=== PATIENT | female | born 1995 | race Caucasian/White ===

== ENCOUNTER 2016-09-21 08:01 | Inpatient (IN) | payer OTHER ==
[~2016-09-21] VITALS: Ht 177.8 cm; Wt 72.6 kg
--- NOTE | 2016-09-21 16:00 | NUR ---
INTAKE ASS[facility]MENT [facility] AOx4. Pt vitals are stable. Pt reports no known allergies. No hx of seizures. Pt brought an inhaler Proventic with her to the unit. Explained unit protocol and policies and pt verbalized understanding. Will admit patient when she gets to unit.
[2016-09-21 16:18] VITALS: BP 114/64
[2016-09-21] MEDS ORDERED: HYDROXYZINE PAMOATE 25 MG CAPSULE PO PRN (16:45)
[2016-09-21] MEDS ORDERED: TRAZODONE 50 MG TABLET PO PRN (16:45)
[2016-09-21 16:51] LABS: *URINE HCG, QUAL NEGATIVE (NEGATIVE)
[2016-09-21 17:05] LABS: *AMPHETAMINE, URINE NEGATIVE (NEGATIVE); *BARBITURATE, URINE NEGATIVE (NEGATIVE); *CANNABINOID, URINE POSITIVE (NEGATIVE); *COCCAINE, URINE NEGATIVE (NEGATIVE); *OPIATE, URINE POSITIVE (NEGATIVE); *PHENCYCLIDINE SCREEN,URINE NEGATIVE (NEGATIVE)
--- NOTE | 2016-09-21 17:20 | NUR ---
ADMISSION NOTE VS: BP 114/64 HR: 90 TEMP: 98.0 RR: 16 O2: 98% WEIGHT 160 LBS HEIGHT 5'10 ALLERGIES: GAYE Pt is a 21 year old female admitted to [facility] on 09/21/16 at 1615. Pt is under the care of Dr. Plummer for heroin, meth, and marijuana dependence. Pt denies suicidal and homicidal ideations at this time. Pt denies being hospitalized in the last 30 days. pt denies chest pain or SOB. Pt reports using an inhaler for asthma symptoms. Upon assessment, patient has abscesses to bilat arms and track edwards up right arm. Pictures taken and put in chart. COWS 6 CIWA 9 upon admission. NKA. AOX4 and able to answer necessary questions for admission process. Pt is full code regular diet. Vitals are stable. Pt denies seizure history. Pt denies having a PCP. Breathing is even and unlabored. Pt ambulates with steady gait. Pt states bowel habits are normal. Pt states she is currently homeless. Pt reports treatment hx last year in [place] and [facility]. Hx borderline personality disorder, anxiety and depression per patient. Pt refuses PNA vaccine. Pt smokes a pack of cigarettes per day. Dr Plummer has been notified and placed client under observation. All needs have been met. Pt has been oriented to room staff and unit. All safety measures in place per hospital policy. Bed locked and in lowest position side rails up x2. Call curry within reach. Will continue to monitor. Substance Abuse: Heroin: 1 gram daily for 6 months, last used 1 gram on 09/21/16 at 0500 Meth: 0.25 gram occasionally for 6 months, last used 0.25 gram on 09/12/16 Marijuana: 1.2 gram daily since age 16. last used 1/2 gram on 09/19/16
[2016-09-21] MEDS ORDERED: MAGNESIUM HYDROXIDE 30 ML LIQUID UDC PO PRN (17:30)
[2016-09-21] MEDS ORDERED: LOPERAMIDE HCL 2 MG CAPSULE PO PRN ×2 (17:30)
[2016-09-21] MEDS ORDERED: IBUPROFEN 600 MG TABLET PO PRN (17:30)
[2016-09-21] MEDS ORDERED: MAG HYDROX/AL HYDROX/SIMETH 30 ML LIQUID UDC PO PRN (17:30)
[2016-09-21] MEDS ORDERED: ONDANSETRON ODT 4 MG TAB.RAPDIS SL PRN (17:30)
[2016-09-21] MEDS ORDERED: ACETAMINOPHEN 325 MG TABLET PO PRN (17:30)
[2016-09-21] MEDS ORDERED: DICYCLOMINE HCL 20 MG TABLET PO PRN (17:30)
[2016-09-21] MEDS ORDERED: MIRALAX 17 GM POWD.PACK PO PRN (17:30)
[2016-09-21] MEDS ORDERED: BUPRENORPHINE HCL 2 MG TAB.SUBL SL PRN (17:30)
[2016-09-21] MEDS ORDERED: ONDANSETRON 4 MG/2 ML VIAL IM PRN (17:30)
[2016-09-21 18:26] LABS: BASOPHILS % (AUTO) 0.4 % (0.0-2.0); EOSINOPHILS # (AUTO) 0.9 K/uL (0.0-0.7); EOSINOPHILS % (AUTO) 14.1 % (0.0-7.0); HEMATOCRIT 37.6 % (37-47); HEMOGLOBIN 12.5 G/DL (12.0-16.0); LYMPHOCYTES # (AUTO) 2.8 K/uL (20.0-40.0); LYMPHOCYTES % (AUTO) 40.8 % (20.5-51.5); MEAN CORPUSCULAR HEMOGLOBIN 28.4 UUG (27.0-31.0); MEAN CORPUSCULAR HGB CONC 33 g/dL (32.0-37.0); MEAN CORPUSCULAR VOLUME 85.4 FL (81.0-99.0); MONOCYTES # (AUTO) 0.6 K/uL (2.0-10.0); MONOCYTES % (AUTO) 8.8 % (0.0-11.0); NEUTROPHILS # (AUTO) 2.4 K/uL (1.8-8.9); NEUTROPHILS % (AUTO) 35.9 % (38.5-71.5); PLATELET COUNT (AUTO) 246 K/UL (150-450); RED CELL DISTRIBUTION WIDTH 13.5 % (11.5-14.5); WHITE BLOOD COUNT (AUTO) 6.7 K/UL (4.0-11.2)
[2016-09-21 18:30] LABS: ETHANOL < 3 MG/DL (0-0)
[2016-09-21 18:36] LABS: ALANINE AMINOTRANSFERASE 104 U/L (14-59); ALBUMIN 3.2 g/dL (3.4-5.0); ALKALINE PHOSPHATASE 108 U/L (50-136); ASPARTATE AMINOTRANSFERASE 41 U/L (15-37); BILIRUBIN,TOTAL 0.2 mg/dL (0.2-1.0); CALCIUM 8.6 mg/dL (8.5-10.1); CARBON DIOXIDE 30 mmol/L (21-32); CHLORIDE 104 mmol/L (98-107); CREATININE 0.8 mg/dL (0.6-1.3); GFR 91 mL/min (>60); GLUCOSE 79 mg/dL (74-106); MAGNESIUM 1.9 mg/dL (1.8-2.4); POTASSIUM 3.8 mmol/L (3.5-5.1); SODIUM SERUM 141 mmol/L (136-145); TOTAL PROTEIN, SERUM 7.2 g/dL (6.4-8.2); UREA NITROGEN, BLOOD 11 mg/dL (7-18)
[2016-09-21 18:46] LABS: THYROID STIMULATING HORMONE 0.569 mIU/mL (0.358-3.740)
[2016-09-21 18:55] LABS: HIV-1 p24 ANTIGEN NON REACTIVE (NONREACTIVE); HIV-1/2 ANTIBODY NON REACTIVE (NONREACTIVE)
--- NOTE | 2016-09-21 18:58 | NUR ---
END OF SHIFT Admitted patient this afternoon. Regular diet full code. Hx anxiety, depression and borderline personality disorder. Pt admitted for heroin,meth, marijuana. COWS 6. Patient is to start 4 day subutex taper tomorrow. Patient currently sleeping in bed rr even and unlabored at 16. Will endorse to night nurse.
[2016-09-21 20:00] VITALS: BP 116/69
--- NOTE | 2016-09-21 20:00 | NUR ---
1999 Patient received sleeping. Attempts for patient to be awakened for vital signs and nurse assessment met, with patient striking out at nurse with both her legs and her arm, while patient frowned, kept her eyes closed and shouted out something unintelligible to nurse. Patient refused to answer any nurse assess questions and mood/affect is combative, hostile and overall uncooperative. Patient refuses any eye contact. V/S are: 97.6-76-14 116/69 O2 Sat 97%, COWS 6, though COWS assess very difficult to assess. Patient's color is pink and her skin is warm, slightly moist and intact. Patient noted to have bilateral lower arm wrap dressings in place on arms, however she refused nurse to unwrap dressings to observe arms underneath dressings Bed is locked and in lowest position, bed rails are up X 2 and call light within patient' easy reach.
[2016-09-22 02:10] VITALS: BP 107/69
[2016-09-22] MEDS: CLONIDINE HCL 0.1 MG TABLET PO PRN (02:13)
[2016-09-22] MEDS: METHOCARBAMOL 750 MG TABLET PO PRN ×2 (02:13→14:22)
--- NOTE | 2016-09-22 02:16 | NUR ---
PRN Subutex 4mg: Patient noted with gross tremor, severe myalgia, severe myoclonus, diaphoresis, agitation, pupils 6mm. COWS is 25. Administered PRN Subutex 4mg, PRN Clonidine, and PRN Robaxin as ordered. Will continue to monitor.
--- NOTE | 2016-09-22 02:30 | NUR ---
Dr. Plummer notified about patients condition. COWS still 25. New order Subutex 4 mg PO once needs to be given in 15 minutes if COWS would be still high. Notify MD about patients conditions in 1 hr. Will continue to monitor.
--- NOTE | 2016-09-22 02:46 | NUR ---
PRN Subutex Reassessment: Patient noted with significant decrease in gross tremor, restlessness, diaphoresis. Patient reports decrease in pain, from 10/10 to 3/10, and decrease in anxiety. COWS decreased from 25 to 5 after PRN Subutex 4mg administration. Will continue to monitor.
--- NOTE | 2016-09-22 03:16 | NUR ---
PRN Clonidine and PRN Robaxin Reassessment: Patient noted to be again displaying agitation, and reports mild muscle cramps. PRN Robaxin mildly effective. PRN Clonidine not effective. Will endorse to primary nurse for follow-up.
[2016-09-22] MEDS ORDERED: BUPRENORPHINE HCL 2 MG TAB.SUBL SL ONE ×3 (03:29→03:30)
[2016-09-22 04:00] VITALS: BP 110/67
--- NOTE | 2016-09-22 04:00 | NUR ---
V/S 97.8 77-12 114/62, O2 Sat 97%, COWS 15
[2016-09-22] MEDS ORDERED: LORAZEPAM 1 MG TABLET PO ONE (06:15)
--- NOTE | 2016-09-22 06:20 | NUR ---
Ativan 1 mg p.o. given per order, for COWS 15. Patient thrashing wildly in bed and states, " I can't do this! 1 to [address] Plummer called by charge nurse, Kaylah, who then also called Crisis team and spoke to 'Deep'.
[2016-09-22] MEDS ORDERED: LORAZEPAM 1 MG TABLET ONE (06:23)
--- NOTE | 2016-09-22 06:30 | NUR ---
0630 Patient slept very restlessly for a total of 6 plus hours, however she screamed in her sleep at times, yelled unintelligible things at staff frequently and she remained uncooperative and combative whenever staff tried to interact with her. Few sips water intake and no output noted this shift. Patient put on 1 to 1 staff for her safety at 0400, as she began to cry loudly, thrash about wildly in bed and make threats to staff about harming herself.
[2016-09-22 08:00] VITALS: BP 124/61
--- NOTE | 2016-09-22 08:00 | NUR ---
START OF SHIFT Pt 21 y/o female admitted for substance dependence. Pt received in room with eyes closed on bed. Sitter 1:1 for safety. Pt alert and oriented to name. Not able to assess further orientation, as pt refuses to answer questions. Pt just responds with grunts, and does not really acknowledge. Pt observed turning left to right and back on bed during attempted assessment. Pt also noted with tearing episode. Pt also with episodes of kicking in any general direction. Pt resistive to care. It was reported that pt slept for 4 hours last night. AST=41 GPM=[address] Plummer made aware. Bed on lowest position with side rails x2 up for safety. Call light within reach.
--- NOTE | 2016-09-22 08:13 | NUR ---
5150 Deep from crisis team was here to evaluate pt. During assessment, pt was resistive to respond, mostly making grunting noises as a response. Pt did eventually respond with short answers, such as yes/no only. Deep stated that she does not meet criteria for 5150, because pt denies threat to self and others.
[2016-09-22] MEDS ORDERED: TUBERCULIN,PURIF.PROT.DERIV. 5 TU/0.1 ML TEST ID ONE (09:00)
[2016-09-22] MEDS: DOCUSATE SODIUM 250 MG CAPSULE PO SCH (09:00)
[2016-09-22] MEDS ORDERED: 4 DAY TAPER BUPRENORPHINE -SERENITY PROTOCOL SL PRN (09:00)
[2016-09-22] MEDS ORDERED: BUPRENORPHINE HCL 2 MG TAB.SUBL SL SCH (09:00)
[2016-09-22] MEDS: MULTIVITAMINS,THERAPEUTIC TABLET PO SCH (09:00)
--- NOTE | 2016-09-22 09:00 | NUR ---
PPD Pt refused the PPD skin test this morning. Pt very resistive stating, " No! why do I have do to do it! I don't want it!". Dr. Plummer aware with new order for cxr r/o tb, noted and carried out.
[2016-09-22] MEDS: CITALOPRAM 20 MG TABLET PO SCH (10:01)
[2016-09-22] MEDS: BUPRENORPHINE HCL 2 MG TAB.SUBL SL SCH ×3 (10:01→21:15)
--- NOTE | 2016-09-22 10:53 | NUR ---
NSG ENTRY Pt was seen by Dr. Juarez with suggestion to notify psychiatrist. Pt observed restless, unpredictable, and agitated. Dr. Betancourt notified and stated he will be here shortly to evaluate the pt. Pt remains on 1:1 sitter for safety.
[2016-09-22] MEDS ORDERED: ALBU8.5H2 INH (11:29)
[2016-09-22 12:00] VITALS: BP 111/60
[2016-09-22] MEDS: QUETIAPINE FUMARATE 25 MG TABLET PO PRN ×2 (14:22→23:28)
--- NOTE | 2016-09-22 14:22 | NUR ---
PRN Pt with c/o generalized body aches 11/27. robaxin po prn per MD order given and tolerated well.
--- NOTE | 2016-09-22 14:22 | NUR ---
PRN Pt agitated. Pt states she is very irritable. Pt stated, "I don't know. I'm just agitated." Seroquel po prn per MD order given and tolerated well.
--- NOTE | 2016-09-22 15:22 | NUR ---
VLADISLAV PANDA Pt observed in room on bed with eyes closed resting, but easily arousable to name. Sitter 1:1 in arm's length. No distress noted at this time.
[2016-09-22 16:00] VITALS: BP 95/41
[2016-09-22] MEDS ORDERED: ALBUTEROL SULFATE 2.5 MG/3 ML NEBU NEB PRN (16:45)
--- NOTE | 2016-09-22 17:30 | NUR ---
CXR Pt refused cxr to be done at this time. x-ray tech stated we will try again later.
--- NOTE | 2016-09-22 18:55 | NUR ---
END OF SHIFT Pt 21 y/o female admitted for substance use. Pt alert and oriented to name and place. Pt selective with responses during converstions today. Perrla. Skin warm and moist to touch. Respirations even and unlabored. Pt resistive and uncooperative this morning. Labile. At times, pt did not want to respond back to anyone talking to her and forcefully shut her eyes ( no distress, respirations even and unlabored). Pt with sitter 1:1 for safety. Pt observed mostly in room throughout the day. Pt did not attend group activity. Bed on lowest position with side rails x2 up for safety. Call light within reach. No distress noted at this time.
--- NOTE | 2016-09-22 19:30 | NUR ---
START OF SHIFT NOTE : Pt 21 y/o female admitted for substance dependence. Pt received in room with eyes closed on bed. Sitter 1:1 for safety. Pt alert and oriented to name. Not able to assess further orientation, pt refuses to answer questions. Pt observed turning left to right and back on bed during attempted assessment. Pt resistive to care. Safety precautions are in place. Bed locked in lowest position. Both side rails up. Call light within pts reach. Will continue to monitor patient and offer help.
[2016-09-22 20:00] VITALS: BP 107/54
--- NOTE | 2016-09-22 22:00 | NUR ---
PRN SEROQUEL Pt agitated. Pt states she is very irritable. Pt stated, "I don't know. I'm just agitated." Seroquel po prn per MD order given and tolerated well.
--- NOTE | 2016-09-22 22:55 | NUR ---
REASSESSMENT SEROQUEL Pt observed in room on bed with eyes closed resting, but easily arousable to name. Sitter 1:1 in arm's length. No distress noted at this time. Safety measures in place : bed on lowest position with side rails x2 up for safety, call light within reach. Will continue to monitor closely and offer help.
--- NOTE | 2016-09-23 07:30 | NUR ---
END OF SHIFT NOTE : Pt 21 y/o female admitted for substance use. Pt alert and oriented to name and place. Pt selective with responses during converstions today. Perrla. Skin warm and dry. Respirations even and unlabored. Pt resistive and uncooperative this morning. Labile. At times, pt did not want to respond back to anyone talking to her and forcefully shut her eyes ( no distress, respirations even and unlabored). Pt with sitter 1:1 for safety. Pt observed mostly in room throughout the day. Pt did not attend group activity. PRN SEROQUEL was given during my shift. V/S remain WNL. RR=16, even and unlabored, lungs clear upon auscultation, abdomen soft and non- distended. Pt denies nausea, vomiting and diarrhea. LAST COWS= 6 at 0400 , VMQUCD=526 ml, voided x 2, slept 9 hours[address] measures in [address] : bed on lowest position with side rails x2 up for safety, call light within reach. Will continue to monitor closely and offer help.
[2016-09-23 08:00] VITALS: BP 99/65
[2016-09-23] MEDS: MULTIVITAMINS,THERAPEUTIC TABLET PO SCH (08:26)
[2016-09-23] MEDS: CITALOPRAM 20 MG TABLET PO SCH (08:26)
[2016-09-23] MEDS: GABAPENTIN 300 MG CAPSULE PO SCH ×3 (08:27→20:47)
[2016-09-23] MEDS: DOCUSATE SODIUM 250 MG CAPSULE PO SCH (08:27)
--- NOTE | 2016-09-23 08:30 | NUR ---
START OF SHIFT Received pt this am tossing and turning in bed. Pt making moaning and grunting noises and very restless. Pt is on 1:1 for pt safety. Pt slept 9 hours. PRN Seroquel was given per night nurse with effectiveness. COWS 10 at 0800. Will medicate patient as ordered and as necessary per patient's w/d s/s. Pt laying in bed with bed locked and in lowest position and call curry within reach. Sitter at bedisde. Will provide safe and supportive environment. Will continue to monitor
[2016-09-23] MEDS ORDERED: BUPRENORPHINE HCL 2 MG TAB.SUBL SL SCH ×2 (09:00)
[2016-09-23 10:10] LABS: HCV AB >11.0 s/co ratio (0.0-0.9); HEPATITIS B CORE AB, IgM Negative (Negative); HEPATITIS B SURFACE AG Negative (Negative)
--- NOTE | 2016-09-23 10:57 | NUR ---
ENDORSEMENT NOTE pt endorsed to day shift SONIA mcclure. Pt on 1:1 with sitter at bedside. VSS. report given to
--- NOTE | 2016-09-23 10:58 | NUR ---
ENDORSEMENT Received pt endorsement received Pt on 1:1 with sitter at bedside. VS WNL will continue to monitor and provide care
[2016-09-23 12:00] VITALS: BP 122/72
[2016-09-23] MEDS: BUPRENORPHINE HCL 2 MG TAB.SUBL SL SCH ×2 (15:31→20:46)
[2016-09-23 16:00] VITALS: BP 125/71
--- NOTE | 2016-09-23 19:30 | NUR ---
START OF SHIFT NOTE : Pt 21 y/o female admitted for Opiate dependence. Pt full code regular diet continues on fall precautions denies any food or drug allergies. Pt alert and oriented to name, place. Pt continues her 4 day Subutex taper. Treatment plan tolerated well by the patient Current COWS=2, VS WNL. Patient encouraged adequate PO fluid intake as tolerated. Detox medication effective at reducing withdrawal symptoms. Patient encouraged to attend group therapies/sessions to learn new coping skills to recent relapse, noted attending and participating in groups and activities, patient denies SI/HI. Safety measures in place. Call light kept within reach. Patient endorsed to women's activities adviser nurse, all pertinent information discussed with women's activities adviser nurse.
--- NOTE | 2016-09-23 19:38 | NUR ---
End Of Shift Pt 21 y/o female admitted for Opiate dependence. Pt full code regular diet continues on fall precautions denies any food or drug allergies. Pt's Sitter 1:1 for safety has been discontinued per MD order. Pt alert and oriented to name. Pt continues her 4 day Subutex taper.Treatment plan tolerated well by the patient. Upon assessment patient presented with dilated pupils, stomach cramps, mild anxiety, with her last COWS score being a 4 @1600. Pt did not receive any PRN medications during day shift. Patient encouraged adequate PO fluid intake as tolerated. Detox medication effective at reducing withdrawal symptoms. Patient encouraged to attend group therapies/sessions to learn new coping skills to recent relapse, noted attending and participating in groups and activities, patient denies SI/HI. Pt ate all of her meals her total fluid intake was 1955 with 3 void and no bowel movement, Safety measures in place. Call light kept within reach. Patient endorsed to mold shifter nurse, all pertinent information discussed with mold shifter nurse.
[2016-09-23 20:00] VITALS: BP 115/68
--- NOTE | 2016-09-23 23:00 | NUR ---
PRN CLONIDINE , TRAZODONE , BENADRYL Pt. complains of sleeplessness, flashes, increased level of anxiety. PRN CLONIDINE , TRAZODONE , BENADRYL Given as ordered. Safety measures in place : bed on lowest position with side rails x2 up for safety, call light within reach. Will continue to monitor closely and offer help.
[2016-09-23] MEDS: diphenhydrAMINE 50 MG CAPSULE PO PRN (23:30)
[2016-09-23] MEDS: CLONIDINE HCL 0.1 MG TABLET PO PRN (23:31)
--- NOTE | 2016-09-23 23:55 | NUR ---
REASSESSMENT CLONIDINE , TRAZODONE , BENADRYL Pt. feels better , is ready to sleep, states decreased level of anxiety. Safety measures in place : bed on lowest position with side rails x2 up for safety, call light within reach. Will continue to monitor closely and offer help.
--- NOTE | 2016-09-24 07:26 | NUR ---
END OF SHIFT NOTE : Pt 21 y/o female admitted for Opiate dependence. Pt full code regular diet continues on fall precautions denies any food or drug allergies. Pt alert and oriented to name, place. Pt continues her 4 day Subutex taper. Treatment plan tolerated well by the patient Current COWS=2, VS WNL. Patient encouraged adequate PO fluid intake as tolerated. Detox medication effective at reducing withdrawal symptoms. Pt remains compliant with the treatment plan. No PRNs were given during my shift. V/S remain WNL. RR=16, even and unlabored, lungs clear upon auscultation, abdomen soft and non- distended. IV access removed, pressure dressing placed properly. Pt denies nausea, vomiting and diarrhea. LAST COWS=2 at 0400 , [id number] ml, voided x 2, slept 6 hours.
[2016-09-24 08:00] VITALS: BP 104/60
--- NOTE | 2016-09-24 08:00 | NUR ---
START OF SHIFT NOTE Receive report from night nurse, 21 year old female admitted for Opiate dependence. NKA, Full code regular diet on fall precautions. Pt alert and oriented to name, place. Pt cont with 4 day Subutex taper. Per endorsement pt received PRN medications effective. Last COWS-2, Slept for 6 hours. Received pt alert awake oriented x 4 in stable condition. Breathing normal no SOB noted. Respiration even and unlabored, lungs clear upon auscultation, abdomen soft and non- distended. Pt denies nausea, vomiting and diarrhea. Patient denies SI/HI. Safety measures in place. Call light kept within reach.
[2016-09-24] MEDS ORDERED: BUPRENORPHINE HCL 2 MG TAB.SUBL SL SCH ×2 (09:00→15:00)
[2016-09-24] MEDS: GABAPENTIN 300 MG CAPSULE PO SCH ×3 (09:02→20:51)
[2016-09-24] MEDS: DOCUSATE SODIUM 250 MG CAPSULE PO SCH (09:02)
[2016-09-24] MEDS: MULTIVITAMINS,THERAPEUTIC TABLET PO SCH (09:02)
[2016-09-24] MEDS: CITALOPRAM 20 MG TABLET PO SCH (09:02)
[2016-09-24] MEDS: BUPRENORPHINE HCL 2 MG TAB.SUBL SL SCH ×3 (09:03→20:52)
[2016-09-24 12:00] VITALS: BP 111/66
[2016-09-24 16:00] VITALS: BP 122/73
--- NOTE | 2016-09-24 19:21 | NUR ---
END OF SHIFT NOTE Gave report to night nurse,21 year old female admitted for Opiate dependence. NKA, Full code regular diet on fall precautions. Pt cont with 4 day Subutex taper. Pt did not receive any PRN medication during shift. Last COWS-2. Pt attended groups and activities. Pt remained compliant with treatment and medications. Vital signs remained stable. Safety measures in place, call light within reach. Pt endorsed pt to night nurse in stable condition.
[2016-09-24 20:00] VITALS: BP 118/68
--- NOTE | 2016-09-24 20:11 | NUR ---
START OF SHIFT NOTE Pt is a 21 y/o female admitted for Heroin , Meth, and Marijuana dependence and use. Pt has NKA but reported a PMH of anxiety, depression, and borderline personality disorder. Per day shift nurse pt was placed on a 4 day Subutex taper (day 3) and is tolerating medication well, with no s/e or a/r reported. Pt didn't receive any PRNS during the day shift. Last COW: 2 (1600). At this time pt has just returned to her room from the recreational room. Pt stated " I'm doing okay today." Pt denies any pain/discomfort at this time. Pt was encouraged to notify staff of any changes in condition or of any concerns. Pt verbalized an understanding. All safety measures in place; side rails up x 2, bed locked and in low position, and call light within reach. Will continue to monitor.
[2016-09-24] MEDS: diphenhydrAMINE 50 MG CAPSULE PO PRN (23:23)
--- NOTE | 2016-09-24 23:23 | NUR ---
BENADRYL PRN ADMINISTRATION Pt stated " Can I have my sleeper now?" Benadryl 50 mg PO PRN was given. Pt was encouraged to notify staff of any changes in condition or of any concerns. Pt verbalized an understanding. All safety measures in place. Will monitor for effectiveness.
[2016-09-25] VITALS: BP 120/66
--- NOTE | 2016-09-25 00:23 | NUR ---
BENADRYL PRN REASSESSMENT Pt is asleep in bed at the moment. Pt is easily aroused. Pt stated " I just fell asleep, but I think I want to go down for a cigarette." Pt was encouraged to stay in bed and rest to prevent restlessness. Pt verbalized an understanding. All safety measures in place. PRN effective. Will continue to monitor.
[2016-09-25] MEDS: HYDROXYZINE PAMOATE 25 MG CAPSULE PO PRN ×3 (03:28→20:06)
--- NOTE | 2016-09-25 03:28 | NUR ---
VISTARIL PRN ADMINISTRATION Pt stated " I woke up feeling a little restless and anxious. Can I have my Vistaril?" Vistaril 50 mg PO PRN was given. Pt was encouraged to notify staff of any changes in condition or of any concerns. Pt verbalized an understanding. All safety measures in place. Will monitor for effectiveness.
[2016-09-25 04:00] VITALS: BP 115/68
--- NOTE | 2016-09-25 04:38 | NUR ---
VISTARIL PRN REASSESSMENT Pt stated "I feel more rested now." PRN effective. Will continue to monitor.
--- NOTE | 2016-09-25 07:35 | NUR ---
END OF SHIFT NOTE Pt is a 21 y/o female admitted for Heroin , Meth, and Marijuana dependence. Pt has NKA but reported a PMH of anxiety, depression, and borderline personality disorder. Pt was placed on a 4 day Subutex taper (day 4) and is tolerating medication well, with no s/e or a/r reported. Pt received Benadryl 50 mg PO PRN and Vistaril 50 mg PO PRN was given during the shift. Pt slept for a total of 3 hours. Last COW: 2 (0400). All safety measures in place; side rails up x 2, bed locked and in low position, and call light within reach. Endorsed to the oncoming nurse.
--- NOTE | 2016-09-25 07:40 | NUR ---
START OF SHIFT NOTE Receive report from night nurse, 21 year old female admitted for Opiate dependence. NKA/ Full code regular diet continues on fall precautions. Pt cont with 4 days Subutex taper tolerating well. per endorsement Pt received PRN medications Last COWS-2, slept for 3 hours. Currently pt is sleeping responsive to verbal and tactile stimuli, Breathing normal no SOB noted. Respiration even and unlabored, lungs clear upon auscultation, Safety measures in place. Call light kept within reach. Will continue to monitor.
[2016-09-25 08:00] VITALS: BP 107/62
--- NOTE | 2016-09-25 08:46 | NUR ---
REFUSED MED Pt refused her scheduled morning medications , offered x3 risk and benefits explained. Pt still refused. MD aware. Last COWS was noted 1.
[2016-09-25] MEDS: MULTIVITAMINS,THERAPEUTIC TABLET PO SCH (09:00)
[2016-09-25] MEDS: DOCUSATE SODIUM 250 MG CAPSULE PO SCH (09:00)
[2016-09-25] MEDS ORDERED: BUPRENORPHINE HCL 2 MG TAB.SUBL SL SCH ×2 (09:00)
[2016-09-25] MEDS: GABAPENTIN 300 MG CAPSULE PO SCH ×3 (09:00→20:06)
[2016-09-25] MEDS: CITALOPRAM 20 MG TABLET PO SCH (09:00)
[2016-09-25 12:00] VITALS: BP 144/65
[2016-09-25] MEDS ORDERED: QUETIAPINE FUMARATE 25 MG TABLET PO PRN (12:00)
[2016-09-25 16:00] VITALS: BP 116/70
[2016-09-25 18:43] LABS: *AMPHETAMINE, URINE NEGATIVE (NEGATIVE); *BARBITURATE, URINE NEGATIVE (NEGATIVE); *CANNABINOID, URINE NEGATIVE (NEGATIVE); *COCCAINE, URINE NEGATIVE (NEGATIVE); *OPIATE, URINE POSITIVE (NEGATIVE); *PHENCYCLIDINE SCREEN,URINE NEGATIVE (NEGATIVE)
--- NOTE | 2016-09-25 19:03 | NUR ---
END OF SHIFT NOTE Gave report to night nurse, 21 year old female admitted for Opiate dependence. NKA, Full code regular diet on fall precautions. Pt completed her 4 day Subutex taper tolerated well. Pt did not receive any PRN medication during shift. Pt attended groups and activities. Pt refused all her morning scheduled medications offered x3 risk and benefits explained still refused. Vital signs remained stable. Pt scheduled for discharge in AM, urine drug screen completed and placed in the chart. Last COWS-1. Safety measures in place, call light within reach. Pt endorsed pt to night nurse in stable condition.
[2016-09-25 20:00] VITALS: BP 132/72
[2016-09-25] MEDS ORDERED: HYDR-3895 PO (20:05)
[2016-09-25] MEDS ORDERED: CITA20TA19 PO (20:05)
[2016-09-25] MEDS ORDERED: METH-33 PO (20:05)
[2016-09-25] MEDS ORDERED: CLON0.1T14 PO (20:05)
[2016-09-25] MEDS ORDERED: Gabapentin PO (20:05)
[2016-09-25] MEDS ORDERED: QUET25TA PO (20:05)
--- NOTE | 2016-09-25 20:06 | NUR ---
START OF SHIFT NOTE Pt is a 21 y/o female admitted for Heroin , Meth, and Marijuana dependence and use. Pt has NKA but reported a PMH of anxiety, depression, and borderline personality disorder. Per day shift note pt completed taper and is scheduled for discharge tomorrow. Pt didn't receive any PRNS during the day shift. Last COW: 1 (1600). At this time pt is coming from a meeting in the recreational room. Pt stated "I'm doing fine today. I leave tomorrow." Pt denies any pain/discomfort at this time. Pt was encouraged to notify staff of any changes in condition or of any concerns. Pt verbalized an understanding. All safety measures in place; side rails up x 2, bed locked and in low position, and call light within reach. Will continue to monitor.
--- NOTE | 2016-09-25 20:06 | NUR ---
VISTARIL PRN ADMINISTRATION Pt stated " I'm anxious. Can I have Vistaril?" Vistaril 50 mg PO PRN was given. Pt was encouraged to notify staff of any changes in condition or of any concerns. Pt verbalized an understanding. Will monitor for effectiveness.
--- NOTE | 2016-09-25 21:06 | NUR ---
VISTARIL PRN REASSESSMENT Pt stated " I'm feel better." PRN effective. Will continue to monitor.
[2016-09-25] MEDS: QUETIAPINE FUMARATE 25 MG TABLET PO PRN (23:47)
--- NOTE | 2016-09-25 23:47 | NUR ---
SEROQUEL PRN ADMINISTRATION Pt stated " I'm agitated. Can I have my Seroquel?" Seroquel 50 mg PO PRN was given. Pt was encouraged to notify staff of any changes in condition or of any concerns. Pt verbalized an understanding. Will monitor for effectiveness.
--- NOTE | 2016-09-26 | NUR ---
COW AND VITALS REFUSED Pt refused to be assessed and have vitals taken at this time. Pt was encouraged x 3 with risks and benefits explained, but the pt still refused. All safety measures in place. Will continue to monitor. Addendum: 09/26/16 at 0211 by ITALO CANO LVN Amended: Links added.
--- NOTE | 2016-09-26 00:47 | NUR ---
SEROQUEL PRN REASSESSMENT Pt stated " I'm okay." PRN effective. Pt was encouraged to notify staff of any changes in condition or of any concerns. Pt verbalized an understanding. Will continue to monitor.
--- NOTE | 2016-09-26 04:00 | NUR ---
COW AND VITALS REFUSED Pt refused to be assessed and have vitals taken at this time. Pt was encouraged x 3 with risks and benefits explained, but the pt still declined. Will continue to monitor. Addendum: 09/26/16 at 0426 by ITALO CANO LVN Amended: Links added.
--- NOTE | 2016-09-26 07:03 | NUR ---
END OF SHIFT NOTE Pt is a 21 y/o female admitted for Heroin , Meth, and Marijuana dependence. Pt has NKA but reported a PMH of anxiety, depression, and borderline personality disorder. Pt completed taper and is scheduled for discharge today. Pt received Seroquel 50 mg PO PRN and Vistaril 50 mg PO PRN was given during the shift. Pt slept for a total of 6 hours. Last COW: 3 (1999). All safety measures in place; side rails up x 2, bed locked and in low position, and call light within reach. Endorsed to the oncoming nurse.
--- NOTE | 2016-09-26 07:25 | NUR ---
Start of shift note Pt was admitted for opiate dependence. Pt has a PMHx of anxiety, depression and borderline personality disorder. Pt has successfully completed a 4 day subutex taper without any ASE. Pt states that she feels ready for discharge. Pt has no complaints at this time. All needs addressed at this time. Pt is scheduled to discharge today. Will continue to monitor pt.
--- NOTE | 2016-09-26 08:45 | NUR ---
Medication Refusal Pt refused to take her coalce. Pt states that she "does not need it". Will continue to monitor pt.
[2016-09-26] MEDS: GABAPENTIN 300 MG CAPSULE PO SCH (08:47)
[2016-09-26] MEDS: MULTIVITAMINS,THERAPEUTIC TABLET PO SCH (08:47)
[2016-09-26] MEDS: CITALOPRAM 20 MG TABLET PO SCH (08:48)
[2016-09-26] MEDS: DOCUSATE SODIUM 250 MG CAPSULE PO SCH (08:48)
[2016-09-26] MEDS ORDERED: BUPRENORPHINE HCL 2 MG TAB.SUBL SL SCH (09:00)
--- NOTE | 2016-09-26 09:02 | NUR ---
Discharge note Pt was admitted for opiate dependence. Pt has a COWS of 1. VS are WNL. LBM 09/26/16. Denies SI/HI. Pt has no complaints at this time. Pt states that she feels ready for discharge. Pt verbalized her understanding of the discharge instructions. Pt prescriptions, medications, discharge packet and all valuables returned to pt. All needs addressed at this time. Pt ID band removed, pt ambulated off of unit with FOOTWEAR MACHINERY INSTRUCTOR, pt left facility via [facility].
== END 2016-09-26 09:02 | disposition other institution (70) | DRG 895 ==
LOC: SRC 15:37
PROVIDERS: ADMIT Internal Medicine; ATTEND Internal Medicine
PROC: HZ2ZZZZ Detoxification Services for Substance Abuse Treatment (ICD-10-PCS; principal; 2016-09-21)
PROC: HZ41ZZZ Group Counseling for Substance Abuse Treatment, Behavioral (ICD-10-PCS; 2016-09-23)
DX: F11.23 Opioid dependence with withdrawal (principal); F33.2 Major depressive disorder, recurrent severe without psychotic features; Z59.0 Homelessness; R74.8 Abnormal levels of other serum enzymes; F41.1 Generalized anxiety disorder; F60.3 Borderline personality disorder; F17.210 Nicotine dependence, cigarettes, uncomplicated; F15.90 Other stimulant use, unspecified, uncomplicated
CPT/HCPCS: 36415; 70030-TC; 71010; 80307; 80349; 80361; 83735; 84443; 84703; 85025; 86580; 86592; 86705; 86803; 87340; 87806; A4663; G6040-TC; Q0163

== ENCOUNTER 2016-10-11 13:14 | Inpatient (IN) | payer OTHER ==
[~2016-10-11 13:14] MED LIST: ALBU8.5H2 INH; CITA20TA19 PO; CLON0.1T14 PO; Gabapentin PO; HYDR-3895 PO; METH-33 PO; QUET25TA PO
[2016-10-11 15:39] LABS: *AMPHETAMINE, URINE POSITIVE (NEGATIVE); *BARBITURATE, URINE NEGATIVE (NEGATIVE); *CANNABINOID, URINE NEGATIVE (NEGATIVE); *COCCAINE, URINE NEGATIVE (NEGATIVE); *OPIATE, URINE POSITIVE (NEGATIVE); *PHENCYCLIDINE SCREEN,URINE NEGATIVE (NEGATIVE)
[2016-10-12] MEDS ORDERED: BUPR1FIL SL (02:11)
== END 2016-10-11 14:30 | disposition home or self-care (01) | DRG 897 ==
LOC: SRC 13:22
PROVIDERS: ADMIT Internal Medicine; ATTEND Internal Medicine
DX: F19.20 Other psychoactive substance dependence, uncomplicated (principal)
CPT/HCPCS: 80307

== ENCOUNTER 2016-10-11 14:34 | Inpatient (IN) | payer OTHER ==
[~2016-10-11] VITALS: Ht 177.8 cm; Wt 77.1 kg
[~2016-10-11 14:34] MED LIST changes: -ALBU8.5H2 INH; +CATAPRES0.1 MG PO; +CELEXA20 MG PO; -CITA20TA19 PO; -CLON0.1T14 PO; -HYDR-3895 PO; +HYDROXYZINE PAM25 M1 PO; -METH-33 PO; +PROAIR HFA8.5 GM INH; -QUET25TA PO; +ROBAXIN750 MG PO; +SEROQUEL25 MG PO
--- NOTE | 2016-10-11 16:30 | NUR ---
PT CLEARED. CALLED [facility] TO COME AND TAKE THE PT.
--- NOTE | 2016-10-11 16:56 | NUR ---
YOVANI FROM [facility] TALKING TO PT.
--- NOTE | 2016-10-11 17:12 | NUR ---
PT D/C FROM ER IN STABLE CONDITION, PT WALKS IN STEADY GAIT. PT LEFT ER WITH [facility]ENITY PERSONEL. PT AXOX3.
[2016-10-11 17:25] VITALS: PULSE 71; RESP 17; O2SAT 98
[2016-10-11] MEDS ORDERED: MAG HYDROX/AL HYDROX/SIMETH 30 ML LIQUID UDC PO PRN (18:15)
[2016-10-11] MEDS ORDERED: PATIENT MAY USE OWN MED- MD OK INH PRN (18:15)
[2016-10-11] MEDS ORDERED: CLONIDINE HCL 0.1 MG TABLET PO PRN (18:15)
[2016-10-11] MEDS ORDERED: ONDANSETRON 4 MG/2 ML VIAL IM PRN (18:15)
[2016-10-11] MEDS ORDERED: ACETAMINOPHEN 325 MG TABLET PO PRN (18:15)
[2016-10-11] MEDS ORDERED: MAGNESIUM HYDROXIDE 30 ML LIQUID UDC PO PRN (18:15)
[2016-10-11] MEDS ORDERED: MIRALAX 17 GM POWD.PACK PO PRN (18:15)
[2016-10-11] MEDS ORDERED: diphenhydrAMINE 50 MG CAPSULE PO PRN (18:15)
[2016-10-11] MEDS ORDERED: LOPERAMIDE HCL 2 MG CAPSULE PO PRN ×2 (18:15)
[2016-10-11] MEDS ORDERED: IBUPROFEN 400 MG TABLET PO PRN (18:15)
[2016-10-11] MEDS ORDERED: DICYCLOMINE HCL 20 MG TABLET PO PRN (18:15)
[2016-10-11] MEDS ORDERED: LORAZEPAM 2 MG/1 ML VIAL IM PRN (18:15)
[2016-10-11] MEDS ORDERED: THIAMINE HCL 200 MG/2 ML VIAL IM ONE (18:15)
[2016-10-11] MEDS ORDERED: ONDANSETRON ODT 4 MG TAB.RAPDIS SL PRN (18:15)
[2016-10-11] MEDS ORDERED: LORAZEPAM 1 MG TABLET PO PRN ×2 (18:15)
--- NOTE | 2016-10-11 18:40 | NUR ---
[facility] per MD order. Environmental Air Specialist was requested to perform intake assessment. Pt is a 21 y/o female, upon assessment at intake pt was sedated and disorganized she was not able to provide any information about her history any previous hospital stays nor what substances she was taking or their doses. Pt unable to formulate a clear train of thought nor provide any viable information. Initial Vitals: BP:124/74, Pulse:100, RR:18 Temp: 98.0 O2%:100%. When pt was escorted out by Cedric from intake, Cedric reported that Pt has verbalized thoughts of suicide by stating "I want to kill myself" Cedric informed the investigative writer about the situation, Environmental Air Specialist contacted MD, Charge nurse and psychiatrist. Order received to place pt on a 1:1 for safety as well as have a Crisis team eval. Charge nurse notified of need to contact crisis team. Tech notified about the 1:1 status, staff currently supervising pt on a 1:1. All information ascertained by investigative writer on pt given to slot shift manager nurse.
--- NOTE | 2016-10-11 19:50 | NUR ---
RN note Crisis Team Evaluation Deep of Crisis Team came to see patient for evaluation. Per Deep, patient is not a danger to herself and acknowledges that patient is too intoxicated to respond coherently to questions and assessment. Deep spoke with Dr. Juarez who was at the floor after he evaluated the patient. Per Dr. Juarez, patient exhibits psychotic symptoms. Pt is aggressive at times and becomes agitated when asked when being evaluated and assessed. 1:1 sitter for safety to continue per Dr. Juarez and Deep. Per Deep, patient is not holdable at this time.
[2016-10-11 20:00] VITALS: BP 124/81; TEMP 98.3
--- NOTE | 2016-10-11 20:30 | NUR ---
ADMISSION Patient is a 21-year old, female, admitted and escorted by [facility] at around 1800 to unit per dayshift RN endorsement. Patient is currently on 1:1 inside room, unable to respond to questions appropriately. Per report, patient is homeless. Patient was previously admitted at [facility] from 09/21/2016 to 09/26/2016. Skin check done, no open skin noted. No edema noted. Since discharge from [facility] last 09/26/2016, pt unable to state amount of all the substances she is using daily. She states that she uses all the 4 substances on daily basis for at least 1 week but not able to state amount. Pt is alert and oriented intermittently. Pt at times refused to respond to questions and would state: Leave me alone. I just want to sleep. Pt is ambulatory with steady gait. Pt stands 5'9" and weighs 170 pounds per bed scale. Vital signs are as follows: BP-124/87, T-98.3, P-78, RR-16 and SPO2 on RA=95%. Patient is AAOx1-2 and with moderate to severe anxiety noted at this time. Lung sounds clear bilaterally upon auscultation. No cough noted and bowel sounds are present on all quadrants. PERRLA and pupils are 3 mm upon visual check. Pt reports NKA, on Regular Diet and is Full Code. Pt denies any seizure history. Per pt, withdrawal symptoms are anxiety, cramps, sweating, goosebumps, agitation, restless legs, generalized pain. Substance history as follows based on patients statements initially: 1) Heroin-pt only verbalized using via IVdaily for the past at least 1 week since discharge from [facility] last 09/26/2016. Pt unable to respond to the amount and last amount used. Last use date stated by pt was 10/11/2016, no time given. Pt is AAOx1-2 and needs redirection. Pt is not oriented and at times speaks with garbled speech. Pt easily gets agitated. 2) Xanax pt only verbalized using via PO daily for the past at least 1 week since discharge from [facility] last 09/26/2016. Pt unable to respond to the amount and last amount used. Last use date stated by pt was 10/11/2016, no time given. Pt is AAOx1-2 and needs redirection. Pt is not oriented and at times speaks with garbled speech. Pt easily gets agitated. 3) Methamphetamine- pt only verbalized using via IVdaily for the past at least 1 week since discharge from [facility] last 09/26/2016. Pt unable to respond to the amount and last amount used. Last use date stated by pt was 10/11/2016, no time given. Pt is AAOx1-2 and needs redirection. Pt is not oriented and at times speaks with garbled speech. Pt easily gets agitated. 4) Cannabis- pt only verbalized using via smoking inhalation daily for the past at least 1 week since discharge from [facility] last 09/26/2016. Pt unable to respond to the amount and last amount used. Last use date stated by pt was 10/11/2016, no time given. Pt is AAOx1-2 and needs redirection. Pt is not oriented and at times speaks with garbled speech. Pt easily gets agitated. Patient unable to state longest sobriety. Patient informed PMHx of Anxiety, Depression, Bipolar DO, Borderline Personality DO and Asthma. Pt states using an inhaler previously but cannot state the name of the medication. Pt denies taking any home medication for the past at least 1 week. No home meds brought. No PCP nor Psychiatrist per patient. Per previous record of admission, patient was at [facility] in 2016. Patient reports smoking cigarettes, about 1 pack daily. With 1:1 sitter as ordered for safety. Fall, universal, seizure and safety precautions implemented. No facial grimacing noted at this time. Information relayed to Dr. Juarez and is aware of the information of the patient. Patient refused Pneumonia vaccine despite explanation of risks and benefits and Flu vaccine is out of season. COWS=9, CIWA=8. Will continue to monitor. Addendum: 10/12/16 at 0129 by KASSIE IRBY RN Additional information: Pt brought medications-Suboxone and 9 unidentified white color pills.
--- NOTE | 2016-10-12 00:02 | NUR ---
RN note Vital Signs and COWS/CIWA Assessment Refusal Pt refused vital signs check and COWS/CIWA assessment despite explanation of risks and benefits. Pt becomes aggressive and agitated everytime she is explained of the risks and benefits. No SOB noted. With 1:1 sitter for safety as ordered.
[2016-10-12] MEDS ORDERED: SUBOXONE 2 MG-1 EAC2 SL (02:11)
--- NOTE | 2016-10-12 07:11 | NUR ---
End of Shift Patient is a 21-year old, female, admitted for Heroin, Xanax, Methamphetamine and Cannabis Dependence. Pt on 1:1 for safety and unable to respond to questions appropriately at this time. Pt is alert and oriented intermittently. With PMHx of Anxiety, Depression, Bipolar DO, Borderline Personality DO and Asthma. Pt is AAOx1-2 and needs redirection. Pt is not oriented and at times speaks with garbled speech. Pt easily gets agitated. Pt tries not to respond to questions and refused assessment at this time. Pt is ambulatory with steady gait. Based on previous admission record, pt reports NKA, on Regular Diet and is Full Code. Pt denies any seizure history. Fall, universal, seizure and safety prec in place. Call light within reach. Latest COWS=9, CIWA=8, slept for 10 hours . Endorsed to AM shift nurse for continuity of care.
[2016-10-12 08:00] VITALS: BP 120/80; TEMP 97.4
--- NOTE | 2016-10-12 08:00 | NUR ---
START OF SHIFT Pt 21 y/o female admitted for bzo/ opiate use d/o. Pt received in room with eyes closed resting, but easily arousable to name. Pt alert and oriented to name, place, and time. Perrla. Skin warm and slightly moist to touch. Pt with sitter 1:1 for safety. Pt did not want to be disturbed at this time. It was reported that pt slept for 10 hours last night. Bed on lowest position with side rails x2 up for safety. Call light within reach. No distress noted at this time.
[2016-10-12] MEDS: FOLIC ACID 1 MG TABLET PO SCH (09:00)
[2016-10-12] MEDS ORDERED: TUBERCULIN,PURIF.PROT.DERIV. 5 TU/0.1 ML TEST ID ONE (09:00)
[2016-10-12] MEDS: THIAMINE HCL 100 MG TABLET PO SCH (09:00)
[2016-10-12] MEDS: MULTIVITAMINS,THERAPEUTIC TABLET PO SCH (09:00)
--- NOTE | 2016-10-12 10:00 | NUR ---
LABS Pt refused labs to be drawn at this time, even with encouragement.
--- NOTE | 2016-10-12 10:40 | NUR ---
NSG ENTRY Pt in room with sitter. Pt just had discussion with administration. Pt had removed wristband. When trying to verify when I was about to put the wristband on, pt replies," oh well. I'm not too sure of my birthday? hmm...I'm not too sure of my last name either. I guess it's maybe on [birth year] I guess 1994. You know? I've never seen my certificate. So I don't know if that's my ." Pt very sarcastic with responses. Pt very uncooperative. When giving and explaining the medications, pt replies," why? why am I getting a multivatmin? why? That's stupid. " Pt selective with medications. Pt refused to sign for acknowledgment of care plan and possible medication side effects. Pt also refused to sign for home medications, subuxone and unidentified pills in a case. Pt stated, " why do I have to sign for that. Pharmacy is just going to destroy them. No I won't sign for them." Pt very uncooperative. Dr. Austin also with order for seroquel 50 mg po x1 dose, but pt refused.
[2016-10-12] MEDS: GABAPENTIN 300 MG CAPSULE PO SCH ×3 (10:47→17:00)
--- NOTE | 2016-10-12 10:51 | NUR ---
PRN Pt anxious and fidgety while sitting on bed. Catapres po prn per MD order given and tolerated well.
--- NOTE | 2016-10-12 11:51 | NUR ---
VLADISLAV PANDA Pt observed in room on bed with eyes closed resting, but easily arousable to name. No distress noted at this time.
[2016-10-12 12:00] VITALS: BP 110/76; TEMP 97.5
[2016-10-12] MEDS ORDERED: QUETIAPINE FUMARATE 25 MG TABLET PO PRN (12:45)
[2016-10-12 16:00] VITALS: BP 115/72; TEMP 97.5
--- NOTE | 2016-10-12 18:42 | NUR ---
END OF SHIFT Pt 21 y/o female admitted for benzo and opioid dependence. Pt alert and oriented to name. Pt refuses to answer questions about time and place. Pt uncooperative. Perrla. Skin warm and dry to touch. Respirations even and unlabored. Pt on 1:1 sitter for safety. Pt isolative to room throughout the day. Pt did not attend group activity. Pt selective with medications. Bed on lowest position with side rails x2 up for safety. Call light within reach. No distress noted at this time. Pt is scheduled to be discharged tomorrow.
[2016-10-12 20:00] VITALS: BP 104/64; TEMP 97.6
--- NOTE | 2016-10-12 20:00 | NUR ---
START OF SHIFT NOTE PATIENT IN HER ROOM WITH 1:1 SITTER. PATIENT AGITATED, DEMANDING , CONFRONTATIONAL WITH STAFF AND EMOTIONAL , REDIRECTION PROVIDED BUT INEFFECTIVE. PATIENT ADVOCATE CAME IN THE ROOM AND TALK TO PATIENT. RECEIVED REPORT FROM DAY SHIFT NURSE. PATIENT IS A 21 YEAR OLD FEMALE FOR HEROIN/XANAX. METH AND CANNABIS DEPENDENCE. PATIENT IS UNDER OBSERVATION NOT ON TAPER. PRN MEDICATION AVAILABLE. PATIENT IS FULL CODE, REGULAR DIET AND NO KNOWN ALLERGY. PATIENT REPORTS PMH OF ANXIETY, DEPRESSION. ASTHMA, BIPOLAR D/O AND BORDERLINE PERSONALITY D/O. PATIENT IS ON FALL PRECAUTION. PATIENT WAS GIVEN PRN CATAPRES AND IBUPROFEN. PATIENT SELECTIVE TO HER MEDICATIONS . PATIENT AGITATED, CONFRONTATIONAL WITH STAFF AND EMOTIONALLY LABILE. SAFETY MEASURES IN PLACE. CALL LIGHT IN REACH. WILL CONTINUE TO MONITOR.
[2016-10-12] MEDS ORDERED: QUETIAPINE FUMARATE 25 MG TABLET PO SCH (21:00)
--- NOTE | 2016-10-12 22:00 | NUR ---
SEROQUEL REFUSED PATIENT REFUSED TO TAKE SEROQUEL , EDUCATE ON RISKS/BENEFITS BUT STILL REFUSED. PATIENT ADVOCATE TALKED TO PATIENT STILL REFUSED.
[2016-10-13] VITALS: BP 99/59; TEMP 97.8
--- NOTE | 2016-10-13 01:23 | NUR ---
PRN ROBAXIN ADMINISTRATION PATIENT C/O GENERALIZED BODY ACHES 10/28. DR. RAMSAY MADE NEW ORDER FOR ROBAXIN. WILL MONITOR FOR EFFECTIVENESS
[2016-10-13] MEDS ORDERED: METHOCARBAMOL 750 MG TABLET ONE (01:29)
[2016-10-13] MEDS ORDERED: METHOCARBAMOL 750 MG TABLET PO PRN (01:30)
--- NOTE | 2016-10-13 02:23 | NUR ---
VLADISLAV GAUTAM RE-ASSESSMENT PATIENT IN BED ASLEEP.1:1 SITTER IN ROOM. NO S/S OF DISTRESS. NO FACIAL GRIMACING. WILL CONTINUE TO MONITOR
--- NOTE | 2016-10-13 03:41 | NUR ---
PRN SEROQUEL ADMINISTRATION PATIENT REPORTS ANXIETY, NOTED PATIENT RESTLESS AND AGITATED. PRN SEROQUEL GIVEN. WILL MONITOR FOR EFFECTIVENESS.
[2016-10-13 04:00] VITALS: BP 128/68; TEMP 97.6
--- NOTE | 2016-10-13 04:41 | NUR ---
PRN SEROQUEL RE-ASSESSMENT PATIENT IN BED WITH EYES CLOSED. NO S/S OF DISTRESS. RESPIRATION EVEN AND UNLABORED. SAFETY MEASURES IN PLACE. CALL LIGHT IN REACH. WILL CONTINUE TO MONITOR.
--- NOTE | 2016-10-13 07:30 | NUR ---
START OF SHIFT Client is a 21 y/o female admitted for benzo and opioid withdrawal. Client is alert and oriented to name, place and time. She presents with anxious mood, flat affect. She denies any SI/HI. Skin warm and dry to touch. Respirations even and unlabored. Pt on 1:1 sitter for promoting safety. Client is schedule for discharge today ar [facility]. Bed on lowest position with side rails x2 up for safety. Call light within reach. No distress noted at this time.
--- NOTE | 2016-10-13 07:34 | NUR ---
END OF SHIFT NOTE MONITORED PATIENT THROUGHOUT SHIFT. PATIENT CONTINUE ON 1:1 SITTER. PATIENT WITH EPISODE OF AGITATION , DEMANDING , CONFRONTATIONAL WITH STAFF AND EMOTIONAL , REDIRECTION PROVIDED BUT INEFFECTIVE. PATIENT ADVOCATE TALKED TO PATIENT. RESIDENT REFUSED TO TAKE HER 2100 SEROQUEL, EXPLAINED RISKS/BENEFITS BUT STILL REFUSED. PATIENT IS MEDICALLY CLEARED TO BE DISCHARGED TODAY. PATIENT IS FULL CODE, REGULAR DIET AND NO KNOWN ALLERGY. PATIENT REPORTS PMH OF ANXIETY, DEPRESSION. ASTHMA, BIPOLAR D/O AND BORDERLINE PERSONALITY D/O. PATIENT IS ON FALL PRECAUTION. PATIENT C/O GENERALIZED BODY ACHES 10/28 AT 0123, PATIENT WAS GIVEN PRN ROBAXIN , OBTAIN ORDER FROM DR. RAMSAY. AT 0341 , PATIENT WAS GIVEN SEROQUEL . SAFETY MEASURES IN PLACE. CALL LIGHT IN REACH. WILL CONTINUE TO MONITOR. SLEPT 7 HOURS. FLUID INTAKE 1,000 ML. VOIDED X 2. NO BM. LAST COWS 2 AND CIWA 1.
[2016-10-13 08:50] VITALS: BP 115/69; TEMP 98.2
[2016-10-13] MEDS: FOLIC ACID 1 MG TABLET PO SCH (09:00)
[2016-10-13] MEDS: THIAMINE HCL 100 MG TABLET PO SCH (09:00)
[2016-10-13] MEDS: MULTIVITAMINS,THERAPEUTIC TABLET PO SCH (09:00)
[2016-10-13] MEDS ORDERED: CITALOPRAM 20 MG TABLET PO SCH (09:00)
[2016-10-13] MEDS: GABAPENTIN 300 MG CAPSULE PO SCH (09:00)
--- NOTE | 2016-10-13 10:13 | NUR ---
Charge nurse notified me that patient is upset about destruction of Suboxone medication. I then approached patient to discuss situation. She verbalized, "You guys are fucking assholes, that Suboxone isn't even mine, it's my friends suboxone, and I need to give it back to them". I then explained that upon admission she signed a consent form that stated we would be withholding all controlled substances. She then verbalized, "I only signed that shit because I wanted to be admitted here". I reminded her that the consent was explained to her on admission and through out stay. I told her that we would include a copy of the signed consent with her discharge paperwork. I also told her that she is more than welcome to speak to the doctor if she has any other questions. She then verbalized, "Get the fuck out of my room you stupid fucking bitch". If you don't get out right now I'm going to flip the fuck out". She then began to yell, "Get the fuck out of my face bitch before I flip out on you!". I then left the room as an attempt to deescalate the patient. Notified Dr. Juarez of patient's behavior. Lewis BRYAN at bedside as well.
--- NOTE | 2016-10-13 10:37 | NUR ---
DISCHARGE NOTE Client refused to sign her discharge papers stating, "I am living now, without those papers." Client walked out with all personal belongings. She is in a stable condition. corporate fitness program coordinator, Charge nurse and JAMES ibrahim andersen of client refusal to sign or accept patient education.
== END 2016-10-13 10:37 | disposition other institution (70) | DRG 895 ==
LOC: ER 14:46 → SRC 17:16
PROVIDERS: ADMIT Internal Medicine; ATTEND Internal Medicine
PROC: HZ2ZZZZ Detoxification Services for Substance Abuse Treatment (ICD-10-PCS; principal; 2016-10-11)
PROC: HZ31ZZZ Individual Counseling for Substance Abuse Treatment, Behavioral (ICD-10-PCS; 2016-10-12)
DX: F15.221 Other stimulant dependence with intoxication delirium (principal); Z59.1 Inadequate housing; Z59.0 Homelessness; F17.210 Nicotine dependence, cigarettes, uncomplicated; F12.90 Cannabis use, unspecified, uncomplicated; F13.90 Sedative, hypnotic, or anxiolytic use, unspecified, uncomplicated; F11.90 Opioid use, unspecified, uncomplicated; F29 Unspecified psychosis not due to a substance or known physiological condition